=== PATIENT | female | born 1945 | race Hispanic/Latino ===

== ENCOUNTER 2025-07-25 22:03 | Emergency (ER) | payer MEDICARE ==
[2025-07-25] MEDS ORDERED: Acetaminophen 500 MG TAB ONE (22:50)
== END 2025-07-25 23:30 | disposition home or self-care (01) ==
LOC: NAV ERS 22:03
DX: S49.91XA Unspecified injury of right shoulder and upper arm, initial encounter (principal); E11.9 Type 2 diabetes mellitus without complications; I10 Essential (primary) hypertension; Z79.4 Long term (current) use of insulin; Z79.899 Other long term (current) drug therapy; W01.10XA Fall on same level from slipping, tripping and stumbling with subsequent striking against unspecified object, initial encounter
CPT/HCPCS: 99283